=== PATIENT | male | born 1990 | race Caucasian/White ===

== ENCOUNTER 2021-02-08 11:53 | Emergency (ER) | payer BC, OTHER ==
--- NOTE | 2021-02-08 12:21 | EDM.PDOC ---
<Ligia Moody - Last Filed: 02/08/21 12:15> ED HPI GENERAL MEDICAL PROBLEM - General Chief Complaint: Upper Extremity Injury/Pain Stated Complaint: [id number] LEFT HAND FINGER SWOLLEN FOR 24 HOURS Time Seen by Provider: 02/08/21 12:10 Source of Information: Reports: Patient History Limitations: Reports: Intoxication - History of Present Illness INITIAL COMMENTS - FREE TEXT/NARRATIVE: Patient presents to the ED with a complaint of his left 3rd finger being swollen for one day. He denies any acute trauma to the hand. 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 He reports recent marital issues and increased his smoking and drinking recently. He smokes cigarettes, marijuana, and e-cigarettes with different fo rmulations. He also reports drinking two mixed drinks in the past hour. 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 - Related Data Allergies Allergy/AdvReac Type Severity Reaction Status Date / Time grain dust Allergy Other Uncoded 11/26/18 19:26 Home Meds: Home Meds . [No Known Home Meds] 11/26/18 [History] Past Medical History - Past Surgical History HEENT Surgical History: Reports: Other (See Below) Other HEENT Surgeries/Procedures: wisdom tooth removal x4 Musculoskeletal Surgical History: Reports: Other (See Below) Other Musculoskeletal Surgeries/Procedures:: right hand fracture repair Departure - Departure Disposition: Home, Self-Care 01 Clinical Impression: Cellulitis of finger of left hand - Discharge Information Instructions: Cellulitis, Adult Forms: ED Department Discharge Additional Instructions: Rx: Doxycycline 100mg Rx: Clindamycin 300mg Follow up at [facility] next week for recheck of finger/hand infection, and discuss your other health concerns. Sepsis Event Note (ED) - Evaluation Sepsis Screening Result: No Definite Risk <Dre Okeefe - Last Filed: 02/08/21 14:55> ED HPI GENERAL MEDICAL PROBLEM - General Source of Information: Reports: Patient, RN, RN Notes Reviewed History Limitations: Reports: Intoxication - History of Present Illness INITIAL COMMENTS - FREE TEXT/NARRATIVE: Pt admits he poked the base of the left middle finger with a razor knife about 3 days ago. Yesterday he noticed the finger was swelling and red. Denies fever or chills. Onset: Gradual Duration: Day(s): (3), Constant Location: Reports: Upper Extremity, Left Quality: Reports: Ache, Throbbing Severity: Moderate Improves with: Reports: None Worsens with: Reports: Movement Treatments ANIMAL BEHAVIOURIST: Reports: Acetaminophen Left Finger-Middle Pain Score (Numeric/FACES): 5 Past Medical History Psychiatric History: Reports: ADHD, Addiction Social & Family History - Family History Family Medical History: Unobtainable - Tobacco Use Tobacco Use Status *Q: Current Every Day Tobacco User Tobacco Use Within Last Twelve Months: Cigarettes - Alcohol Use Alcohol Use History: Yes Alcohol Use Frequency: Binges - Recreational Drug Use Recreational Drug Use: Yes Drug Use in Last 12 Months: Yes Recreational Drug Type: Reports: Marijuana/Hashish, Methamphetamine - Living Situation & Occupation Living situation: Reports: Occupation: Employed ED ROS GENERAL - Review of Systems Review Of Systems: Comprehensive ROS is negative, except as noted in HPI. ED EXAM, GENERAL - Physical Exam Exam: See Below Exam Limited By: Intoxication General Appearance: Alert, WD/WN, Anxious Throat/Mouth: Normal Voice, No Airway Compromise Head: Atraumatic, Normocephalic Respiratory/Chest: No Respiratory Distress, Lungs Clear, Normal Breath Sounds, No Accessory Muscle Use, Chest Non-Tender Cardiovascular: Normal Peripheral Pulses, Regular Rate, Rhythm Extremities: Normal Capillary Refill, Redness (Base of left middle finger). No: Joint Swelling Course - Vital Signs Last Recorded V/S: Last Vital Signs Temp 98 F 02/08/21 12:04 Pulse 88 02/08/21 12:04 Resp 18 02/08/21 12:04 BP 161/87 H 02/08/21 12:04 Pulse Ox 99 02/08/21 12:04 - Re-Assessments/Exams Free Text/Narrative Re-Assessment/Exam: 02/08/21 14:54 I personally performed or re-performed the physical examination and medical decision making. I have verified all student documentation or findings, including history, physical exam and/or medical decision making. Departure - Departure Time of Disposition: 12:30 Condition: Good - Discharge Information *PRESCRIPTION DRUG MONITORING PROGRAM REVIEWED*: Not Applicable *COPY OF PRESCRIPTION DRUG MONITORING REPORT IN PATIENT STELLA: Not Applicable Sepsis Event Note (ED) - Focused Exam Vital Signs: Vital Signs Temp Pulse Resp BP Pulse Ox 02/08/21 12:04 98 F 88 18 161/87 H 99
--- NOTE | 2021-02-08 12:26 | EDM.PDOC ---
ED HPI GENERAL MEDICAL PROBLEM - General Time Seen by Provider: 02/08/21 12:05 - History of Present Illness INITIAL COMMENTS - FREE TEXT/NARRATIVE: DUPLICATE CHART: DISREGARD Left Finger-Middle Pain Score (Numeric/FACES): 5 - Related Data Allergies Allergy/AdvReac Type Severity Reaction Status Date / Time grain dust Allergy Other Uncoded 11/26/18 19:26 Home Meds: Home Meds . [No Known Home Meds] 11/26/18 [History] Past Medical History - Past Surgical History HEENT Surgical History: Reports: Other (See Below) Other HEENT Surgeries/Procedures: wisdom tooth removal x4 Musculoskeletal Surgical History: Reports: Other (See Below) Other Musculoskeletal Surgeries/Procedures:: right hand fracture repair Review of Systems - Review of Systems Review Of Systems: Unable To Obtain Reason Not Obtained: DUPLICATE CHART: DISREGARD ED EXAM, GENERAL - Physical Exam Exam: Not Obtained Reason Not Obtained: DUPLICATE CHART: DISREGARD Course - Vital Signs Last Recorded V/S: Last Vital Signs Temp 98 F 02/08/21 12:04 Pulse 88 02/08/21 12:04 Resp 18 02/08/21 12:04 BP 161/87 H 02/08/21 12:04 Pulse Ox 99 02/08/21 12:04 Departure - Departure Time of Disposition: 14:58 Disposition: Home, Self-Care 01 Clinical Impression: Cellulitis of finger of left hand - Discharge Information *PRESCRIPTION DRUG MONITORING PROGRAM REVIEWED*: Not Applicable *COPY OF PRESCRIPTION DRUG MONITORING REPORT IN PATIENT STELLA: Not Applicable Referrals: PCP,Not In Area [Primary Care Provider] - Forms: ED Department Discharge Additional Instructions: DUPLICATE CHART: DISREGARD Sepsis Event Note (ED) - Evaluation Sepsis Screening Result: No Definite Risk - Focused Exam Vital Signs: Vital Signs Temp Pulse Resp BP Pulse Ox 02/08/21 12:04 98 F 88 18 161/87 H 99
== END 2021-02-08 12:44 | disposition home or self-care (01) ==
LOC: DL.ED 11:53
DX: L03.012 Cellulitis of left finger (principal); Z91.048 Other nonmedicinal substance allergy status; Z72.0 Tobacco use
CPT/HCPCS: 99283

== ENCOUNTER 2021-08-06 09:19 | Emergency (ER) | payer BC ==
--- NOTE | 2021-08-06 09:41 | EDM.PDOC ---
ED HPI GENERAL MEDICAL PROBLEM - General Stated Complaint: BLOODY STOOLS Time Seen by Provider: 08/06/21 09:37 Source of Information: Reports: Patient, Police ([facility]), RN, RN Notes Reviewed History Limitations: Reports: No Limitations - History of Present Illness INITIAL COMMENTS - FREE TEXT/NARRATIVE: Jose E is a 30 y/o male who presents to the ED via [facility] for complaints of bleeding internal hemorrhoids. The patient reports he has had transient rectal bleeding for years, however today he had and episode and became concerned. The patient characterizes the blood as bright red with small drops in the bowl. He denies fever, shaking chills, vision changes, dizziness, chest pain/pressure, palpitations, shortness of breath, dyspepsia, nausea, vomiting, hematemesis, dysuria, hematuria, or melena. He has taken no medications for his symptoms. - Related Data Allergies Allergy/AdvReac Type Severity Reaction Status Date / Time grain dust Allergy Other Uncoded 11/26/18 19:26 Home Meds: Home Meds . [No Known Home Meds] 11/26/18 [History] Past Medical History Psychiatric History: Reports: ADHD, Addiction - Past Surgical History HEENT Surgical History: Reports: Other (See Below) Other HEENT Surgeries/Procedures: wisdom tooth removal x4 Musculoskeletal Surgical History: Reports: Other (See Below) Other Musculoskeletal Surgeries/Procedures:: right hand fracture repair Social & Family History - Family History Family Medical History: Unobtainable - Living Situation & Occupation Living situation: Reports: Occupation: Employed ED ROS GENERAL - Review of Systems Review Of Systems: Comprehensive ROS is negative, except as noted in HPI. ED EXAM, GI/ABD - Physical Exam Exam: See Below Exam Limited By: No Limitations General Appearance: Alert, No Apparent Distress Eyes: Bilateral: Normal Appearance, EOMI Ears: Normal External Exam, Hearing Grossly Normal Nose: Normal Inspection Throat/Mouth: Normal Inspection, Normal Oropharynx, Normal Voice, No Airway Compromise Head: Atraumatic, Normocephalic Neck: Normal Inspection, Full Range of Motion Respiratory/Chest: No Respiratory Distress, Lungs Clear, Normal Breath Sounds, No Accessory Muscle Use, Chest Non-Tender Cardiovascular: Normal Peripheral Pulses, Regular Rate, Rhythm, No Gallop, No Murmur, No Rub GI/Abdominal Exam: Normal Bowel Sounds, Soft, Non-Tender, No Distention, No Abnormal Bruit, No Mass, Pelvis Stable (Male) Exam: No Hernia, Normal Inspection, Circumcised Rectal (Males) Exam: Normal Exam, Normal Rectal Tone, Hemorrhoids (Internal, not actively bleeding). No: Rectal Fissure, Tenderness Back Exam: Normal Inspection, Full Range of Motion Extremities: Normal Inspection, Normal Range of Motion, Normal Capillary Refill Neurological: Alert, Oriented, CN II-XII Intact, Normal Cognition, Normal Gait, No Motor/Sensory Deficits Psychiatric: Normal Affect, Normal Mood Skin Exam: Warm, Dry, Intact, Normal Color, No Rash. No: Cyanosis, Jaundice, Mottled, Pallor Course - Vital Signs Last Recorded V/S: Last Vital Signs Temp 97.8 F 08/06/21 09:40 Pulse 102 H 08/06/21 09:40 Resp 16 08/06/21 09:40 BP 147/85 H 08/06/21 09:40 Pulse Ox 99 08/06/21 09:40 - Orders/Labs/Meds Labs: Laboratory Tests 08/06/21 Range/Units 09:45 WBC 5.5 (5.0-10.0) 10^3/uL RBC 4.70 (4.6-6.2) 10^6/uL Hgb 15.2 (14.0-18.0) g/dL Hct 44.6 (40.0-54.0) % MCV 94.9 (80-100) fL MCH 32.3 (27.0-34.0) pg MCHC 34.1 (33.0-35.0) g/dL Plt Count 275 (150-450) 10^3/uL Neut % (Auto) 70.5 (42.2-75.2) % Lymph % (Auto) 19.0 L (20.5-50.1) % Riley % (Auto) 9.6 H (2-8) % Eos % (Auto) 0.7 L (1.0-3.0) % Baso % (Auto) 0.2 (0.0-1.0) % - Re-Assessments/Exams Free Text/Narrative Re-Assessment/Exam: 08/06/21 Hgb stable. Findings of examination and lab work reviewed with patient. Supportive cares for internal hemorrhoids discussed. Patient instructed to follow up with primary care provider regarding todays visit. Red flag signs and symptoms which would warrant immediate reevaluation reviewed. Patient verbalized understanding and agreement with the plan of care. Departure - Departure Time of Disposition: 09:59 Disposition: Home, Self-Care 01 Condition: Good Clinical Impression: Internal hemorrhoid, bleeding - Discharge Information *PRESCRIPTION DRUG MONITORING PROGRAM REVIEWED*: Not Applicable *COPY OF PRESCRIPTION DRUG MONITORING REPORT IN PATIENT STELLA: Not Applicable Instructions: Hemorrhoids, [id number] Referrals: PCP,None [Primary Care Provider] - Forms: ED Department Discharge Additional Instructions: 1.) You may take a stool softener daily to help ease bowel movements. 2.) Increase water intake to keep stools soft. 3.) You may take daily fiber, or increase the fiber in your diet. 4.) Follow up with your primary care provider, or return to the emergency department with any worsening bleeding, chest pain, palpitations, dizziness, or shortness of breath.
== END 2021-08-06 10:00 | disposition home or self-care (01) ==
LOC: DL.ED 09:19
DX: K64.8 Other hemorrhoids (principal); Z91.048 Other nonmedicinal substance allergy status
CPT/HCPCS: 36415; 85025; 99283